=== PATIENT | female | born 1950 | race Caucasian/White ===

== ENCOUNTER 2019-01-11 15:57 | Emergency (ER) | payer BC, MEDICARE, OTHER ==
[2019-01-11 16:27] VITALS: BP 166/73
--- NOTE | 2019-01-11 16:54 | EDM.PDOC ---
ED HPI GENERAL MEDICAL PROBLEM - General Chief Complaint: Laceration Stated Complaint: LACERATION ON LT LEG Time Seen by Provider: 01/11/19 16:35 Source of Information: Reports: Patient, Family History Limitations: Reports: No Limitations - History of Present Illness INITIAL COMMENTS - FREE TEXT/NARRATIVE: 60-year-old female who has a history of "very thin skin" was in the [place] when she stumbled forward and a stick went up her pant leg and stabbed her deep in the left lower leg as well as peeling the superficial skin off of the lower leg. She ambulates with some discomfort. She just received a routine tetanus booster last week. Onset: Sudden Duration: Hour(s): (within the last hour) Location: Reports: Lower Extremity, Left Associated Symptoms: Reports: No Other Symptoms - Related Data Allergies Allergy/AdvReac Type Severity Reaction Status Date / Time ampicillin Allergy Hives Verified 04/20/15 08:10 aspirin Allergy Wheezing Verified 04/20/15 08:10 omeprazole Allergy Hives Verified 01/11/19 16:22 Sulfa (Sulfonamide Allergy Hives Verified 04/20/15 08:10 Antibiotics) Home Meds: Home Meds Calcium Carbonate/Vitamin D3 [Calcium 600 + D Tablet] 2 tab PO DAILY 04/18/15 [ History] Fluticasone/Salmeterol [Advair Diskus 100-50] 1 puff INH BID 04/18/15 [History] Albuterol Sulfate [Albuterol Sulfate HFA] 2 puff IH Q6H PRN 04/20/15 [History] Fluticasone Propionate [Fluticasone Propionate Roberts] 2 spray INH BID 04/20/15 [ History] Losartan [Cozaar] 01/11/19 [History] Pravastatin Sodium 01/11/19 [History] Ranitidine [Zantac] 01/11/19 [History] Past Medical History Other HEENT History: TINNITIS BILAT EARS - Past Surgical History Other HEENT Surgeries/Procedures: PT HAD LASIK SURGERY ON EYES AND 2 SINUS SURGERIES Social & Family History - Tobacco Use Smoking Status *Q: Never Smoker ED ROS GENERAL - Review of Systems Review Of Systems: See Below Constitutional: Denies: Fever Respiratory: Denies: Shortness of Breath GI/Abdominal: Denies: Nausea, Vomiting Neurological: Denies: Paresthesia ED EXAM, SKIN/RASH Exam: See Below Exam Limited By: No Limitations General Appearance: Alert, No Apparent Distress Respiratory/Chest: No Respiratory Distress Extremities: Other (Remainder of exam is limited to the lower extremities. The left leg is a 13 cm long, 7 cm wide deep avulsion of tissue with retraction of the superficial skin exposing the underlying tissue.) Course - Vital Signs Last Recorded V/S: Last Vital Signs Temp 99 F 01/11/19 16:29 Pulse 103 H 01/11/19 16:29 Resp 21 H 01/11/19 16:29 BP 166/73 H 01/11/19 16:29 Pulse Ox 91 L 01/11/19 16:29 - Orders/Labs/Meds Meds: Medications Discontinued Medications Generic Name Dose Route Start Last Admin Trade Name Sarai PRN Reason Stop Dose Admin Bupivacaine HCl 50 ml 01/11/19 18:23 01/11/19 18:27 Marcaine 0.5% INFILT 01/11/19 18:24 50 ml ONETIME ONE Administration Bupivacaine HCl/Epinephrine Bitart Confirm 01/11/19 17:39 Marcaine 0.5%/Epinephrine 1:200,000 Administered 01/11/19 17:40 Dose 50 ml .ROUTE .STK-MED ONE Cefazolin Sodium/Dextrose Confirm 01/11/19 18:10 Ancef Administered 01/11/19 18:11 Dose 2 gm IV .STK-MED ONE Cefazolin Sodium/Dextrose 2 gm 50 mls @ 100 mls/hr 01/11/19 18:25 01/11/19 18 :29 / Premix IV 01/11/19 18:54 100 mls/hr ONETIME ONE Administration Lidocaine/Epinephrine Confirm 01/11/19 17:39 Xylocaine 1% With Epinephrine 1:100,000 Administered 01/11/19 17:40 Dose 50 ml .ROUTE .STK-MED ONE Lidocaine/Epinephrine 50 ml 01/11/19 18:22 01/11/19 18:27 Xylocaine 1% With Epinephrine 1:100,000 INFILT 01/11/19 18:23 50 ml NOW STA Administration Morphine Sulfate Confirm 01/11/19 17:03 Morphine Administered 01/11/19 17:04 Dose 2 mg .ROUTE .STK-MED ONE Morphine Sulfate Confirm 01/11/19 17:36 Morphine Administered 01/11/19 17:37 Dose 2 mg .ROUTE .STK-MED ONE Morphine Sulfate 2 mg 01/11/19 18:20 01/11/19 18:26 Morphine IVPUSH 01/11/19 18:21 2 mg ONETIME ONE Administration Morphine Sulfate 2 mg 01/11/19 18:21 01/11/19 18:27 Morphine IVPUSH 01/11/19 18:22 2 mg ONETIME ONE Administration - Re-Assessments/Exams Free Text/Narrative Re-Assessment/Exam: 01/11/19 16:53 This wound does not appear to be something that can be repaired without a surgical consult or opinion. I did talk to Dr. Ch and sent him a picture , he agreed to come in and look at the wound. The wound was covered with sterile saline gauze. Departure - Departure Time of Disposition: 19:42 Disposition: Home, Self-Care 01 Clinical Impression: Laceration of left lower leg Qualifiers: Encounter type: initial encounter Qualified Code(s): S81.812A - Laceration without foreign body, left lower leg, initial encounter - Discharge Information Instructions: Skin Tear Care Referrals: PCP,None [Primary Care Provider] - Forms: ED Department Discharge Care Plan Goals: Leave dressing in place. Follow instructions from surgical care. Activity as tolerated. Tylenol for pain per bottle instructions. Ice, on and off over the next 24 hrs. call or return to the ED for worsening or new symptoms.
[2019-01-11] MEDS ORDERED: Morphine 2 MG/ML Syringe ONE ×2 (17:03→17:36)
[2019-01-11] MEDS ORDERED: Lidocaine 1% with EPINEPHrine 1:100,000 50 ML MDV ONE (17:39)
[2019-01-11] MEDS ORDERED: Bupivacaine 0.5%/EPINEPHrine 1:200,000 50 ML MDV ONE (17:39)
[2019-01-11] MEDS ORDERED: ceFAZolin/Dextrose,Iso-Osmotic 2 GM/50 ML Duplex Bag IV ONE (18:10)
[2019-01-11] MEDS ORDERED: Morphine 2 MG/ML Syringe IVPUSH ONE ×2 (18:20→18:21)
[2019-01-11] MEDS ORDERED: Lidocaine 1% with EPINEPHrine 1:100,000 50 ML MDV INFILT STA (18:22)
[2019-01-11] MEDS ORDERED: Bupivacaine 0.5% 50 ML MDV INFILT ONE (18:23)
[2019-01-11] MEDS ORDERED: ceFAZolin 2 GM in Premix Bag 1 BAG IV ONE (18:25)
--- NOTE | 2019-01-11 20:01 | OR ---
DATE OF PROCEDURE: 01/11/2019 PROCEDURE PERFORMED: Exploration trauma, left leg (). COMPLICATIONS: None. RN BIRTHING: None. ANESTHESIA: Local. INDICATION: A 68-year-old female, who had a traumatic penetration of the left leg with a wood object. This resulted in deep penetration and a full-thickness skin tear leaving a class III skin tear. Risks, benefits, alternatives, and limitations including, but not limited to, infection, bleeding, and requirement for reoperation, plastic surgery, concerns of flap failure, deep infection or retained foreign material was also explained to the patient who wished to proceed. PROCEDURE IN DETAIL: The patient was placed in supine position. The area was prepped with Betadine. The patient was given morphine for mild sedation. The skin and its associated flap were all anesthetized with lidocaine mixed with Marcaine. Wound was explored. The wood stick object had penetrated through the skin fat into the anterior fascia and into the muscle. Minimal foreign material was noted and was thoroughly irrigated. The fascia and muscle were reapproximated with 3-0 Vicryl. Fat tissues were also reapproximated with 3-0 Vicryl. The skin was debrided using a scissors. The skin was then reapproximated using levi. The total area of reapproximation was approximately 15 cm in size. This left an area of class III defect of approximately 5 cm x 1.5 cm. This was unable to be closed due to loss of domain from the injury and its associated edema. Once this was completed, Mepitel One dressings were placed after the skin was irrigated. Of note, the wound itself was irrigated multiple times using normal saline. After the Mepitel One dressing was placed, a 3-layer Border Lite type dressing was placed along with Niels. The patient tolerated the procedure well. Of note, the patient informs me that due to her insurance, she does not have insurance coverage and her closest coverage would be [place], [place]. She is advised to follow up on Saturday for further management and treatment of this wound, which will require multiple visits. Terell Ch MD /[id number]
== END 2019-01-11 19:44 | disposition home or self-care (01) ==
LOC: JP.ED 15:57
DX: S81.812A Laceration without foreign body, left lower leg, initial encounter (principal); Z79.899 Other long term (current) drug therapy; W45.8XXA Other foreign body or object entering through skin, initial encounter; Z88.1 Allergy status to other antibiotic agents; Z88.8 Allergy status to other drugs, medicaments and biological substances; Z88.2 Allergy status to sulfonamides
CPT/HCPCS: 96365; 96375; 96376; 99282; J0690; J2270; J3490

== ENCOUNTER 2019-02-17 07:44 | Day surgery (SDC) | payer MEDICARE ==
[~2019-02-17 07:44] MED LIST: Bacitracin Oint 28.35 GM Tube ONE; Lidocaine 1% with EPINEPHrine 1:100,000 50 ML MDV ONE; Lidocaine/Prilocaine 2.5-2.5% Crm 5 GM Tube ONE; Mineral Oil 10 ML Bottle ONE
[2019-02-17] MEDS ORDERED: Sodium Chloride 0.9% 1,000 ML IV SCH (08:15)
[2019-02-17] MEDS ORDERED: Midazolam 1 MG/ML 2 ML SDV ONE (08:38)
[2019-02-17] MEDS ORDERED: Propofol 200 MG/20 ML SDV ONE (08:38)
[2019-02-17] MEDS ORDERED: fentaNYL 100 MCG/2 ML SDV ONE (08:38)
[2019-02-17] MEDS ORDERED: ceFAZolin 2 GM in Premix Bag 1 BAG IV ONE (08:45)
[2019-02-17] MEDS ORDERED: Lidocaine/Prilocaine 2.5-2.5% Crm 5 GM Tube ONE (10:38)
[2019-02-17 11:39] VITALS: BP 156/90; PULSE 63
--- NOTE | 2019-03-03 10:36 | OR ---
DATE OF PROCEDURE: 02/17/2019 SURGEON: Terell Ch MD PROCEDURES: 1. Surgical preparation of recipient site by excision of open chronic wound, left leg 4.2 cm (16946). 2. Split-thickness skin graft, left leg, 4.2 cm ([id number]). COMPLICATION: None CUPBOARD BUILDER: None. PREOPERATIVE DIAGNOSIS: Traumatic wound resulting in a large denuding of complete thickness of skin, left leg. POSTOPERATIVE DIAGNOSIS: Traumatic wound resulting in a large denuding of complete thickness of skin, left leg. RISKS: Risks, benefits, alternatives, and limitations including, but not limited to infection, bleeding, and requirement for reoperation were explained to the patient and wished to proceed. PROCEDURE IN DETAIL: The patient was placed in supine position. The left leg was readily identified. The area of chronic wound and necrotic tissue was excised using a Weck blade. This was then thoroughly irrigated. Lidocaine with epinephrine was used to control minimal bleeding. The lidocaine itself was placed in the sponge. The donor site would be left thigh. This would be harvested approximately 4 cm in length. This was harvested using dermatome set to 12,000. Mineral oil was used. The dermatome was powered up prior to contacting the skin and then removed from the skin and torqued down. This was then meshed in a 1.5:1 ratio. This was then sewn in with fast dissolving chromic sutures approximately every 0.5 cm. Dressings, which included bacitracin, Adaptic, secondary and tertiary layers were then placed over the recipient site. Donor site was treated with a DuoDerm with holes punched in it and then secondary and tertiary dressings. The patient tolerated the procedure well. Terell Ch MD /[id number]
== END 2019-02-17 12:16 | disposition home or self-care (01) ==
LOC: JP.SDS 07:44
PROVIDERS: ATTEND Surgery
DX: S81.802A Unspecified open wound, left lower leg, initial encounter (principal); J45.909 Unspecified asthma, uncomplicated; K21.9 Gastro-esophageal reflux disease without esophagitis; E66.9 Obesity, unspecified; X58.XXXA Exposure to other specified factors, initial encounter; Z86.73 Personal history of transient ischemic attack (TIA), and cerebral infarction without residual deficits
CPT/HCPCS: 15002; 15100; A9270; C1762; J0690; J2250; J2704; J3010; J7030

== ENCOUNTER 2022-03-10 18:08 | Emergency (ER) | payer MEDICARE ==
[2022-03-10] MEDS ORDERED: Lidocaine 2% Viscous Solution 100 ML Bottle ONE (19:05)
[2022-03-10] MEDS ORDERED: Diphtheria,Pertussis(Acell),Tetanus Vaccine 0.5 ML Syringe IM ONE (19:08)
[2022-03-10] MEDS ORDERED: Lidocaine 2% Jelly 10 ML Urojet MUCMEM ONE (19:13)
[2022-03-10] MEDS ORDERED: Bacitracin Oint 1 GM U/D Packet TOP ONE (20:17)
[2022-03-10 20:41] VITALS: BP 191/84; PULSE 73
== END 2022-03-10 20:47 | disposition home or self-care (01) ==
LOC: JP.ED 18:08
DX: S81.812A Laceration without foreign body, left lower leg, initial encounter (principal); E78.00 Pure hypercholesterolemia, unspecified; I10 Essential (primary) hypertension; K21.9 Gastro-esophageal reflux disease without esophagitis; Z86.73 Personal history of transient ischemic attack (TIA), and cerebral infarction without residual deficits; Z88.0 Allergy status to penicillin; Z88.2 Allergy status to sulfonamides; Z88.8 Allergy status to other drugs, medicaments and biological substances; Z23 Encounter for immunization; Z79.899 Other long term (current) drug therapy; W22.09XA Striking against other stationary object, initial encounter
CPT/HCPCS: 12004; 90471; 90715; 99283; 99283-25; A9270-GY